=== PATIENT | female | born 1950 | race Caucasian/White ===

== ENCOUNTER 2017-01-04 09:21 | Day surgery (SDC) | payer OTHER ==
[2016-09-18 10:24] VITALS: BMI 32.9
[2017-01-04] MEDS ORDERED: Simethicone 40 mg/0.6 ml Liquid (30 ml) ONE (10:03)
[2017-01-04] MEDS ORDERED: Lidocaine Hydrochloride 5 ML INJ ONE (12:26)
[2017-01-04] MEDS ORDERED: Propofol 10 mg/ml Inj (20 ML) ONE ×2 (12:26)
[2017-01-04 16:22] VITALS: TEMP 98.4
[2017-01-04 16:29] VITALS: BP 123/61; PULSE 65; RESP 18; O2SAT 98
== END 2017-01-04 13:50 | disposition home or self-care (01) ==
LOC: C.ENDO 09:21
PROVIDERS: ATTEND Internal Medicine Gastroenterology
DX: Z12.11 Encounter for screening for malignant neoplasm of colon (principal); K64.8 Other hemorrhoids; K59.00 Constipation, unspecified; E11.9 Type 2 diabetes mellitus without complications; I10 Essential (primary) hypertension; E03.9 Hypothyroidism, unspecified; R10.9 Unspecified abdominal pain; K29.70 Gastritis, unspecified, without bleeding
CPT/HCPCS: 43254; 45378; 82948; 88305; 88313; 88342; 92700; J2704